=== PATIENT | female | born 1950 | race Caucasian/White ===

== ENCOUNTER → 2018-03-09 | Outpatient (CLI) | payer MEDICARE, OTHER ==
--- NOTE | 2018-03-09 14:33 | Diagnostic Imaging Report ---
Cervical Spine, 5 views including bilateral obliques HISTORY: Neck pain. Right shoulder pain COMPARISON: None. FINDINGS: Limited sensitivity for detection of subtle fractures and ligamentous abnormalities. On the lateral view, the cervical spine is visualized from the skull base to T3. Grade 1 anterolisthesis of C4 on C5. No acute displaced fracture involving the visualized cervical spine. Mild bilateral C4-C5 and C5-C6 neuroforaminal narrowing. Disc Spaces and Uncovertebral Joints: Moderate disc space narrowing at C5 on C6 with large posterior disc osteophyte. Mild disc space narrowing at C6 and C7. Facets: Moderate multilevel facet arthrosis. Partial fusion of the C3-C4 posterior elements secondary to facet arthropathy. IMPRESSION: 1. Focal moderate degenerative changes in the cervical spine with trace grade 1 anterolisthesis at C4-C5 and moderate disc space narrowing with a large posterior disc osteophyte at C5-C6. 2. Mild bilateral neuroforaminal narrowing at C4-C5 and C5-C6. Signed by: Dr. Shaheed Mishra M.D. on 03/09/2018 2:30 PM
== END ==
LOC: RAD 12:46
PROVIDERS: ATTEND Internal Medicine
DX: M54.2 Cervicalgia (principal)
CPT/HCPCS: 72050